=== PATIENT | female | born 2000 | race Two or more races ===

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

== ENCOUNTER 2024-09-25 23:46 | Inpatient (IN) | payer MEDICAID, OTHER ==
[~2024-09-25] VITALS: Ht 149.9 cm; Wt 71.5 kg
[2024-09-26] VITALS (8 sets, daily range): BP systolic 87–117; BP diastolic 42–87; PULSE 60–86; RESP 14–18; TEMP 97.8–98.6; O2SAT 97–98
[2024-09-26] MEDS: ONDANSETRON ODT 4 MG TAB PO ONE
[2024-09-26 00:43] LABS: Urine Bacteria FEW /hpf (None Seen); Urine Blood Negative /uL (Negative); Urine Clarity Turbid (Clear); Urine Color Yellow (Yellow); Urine Mucus FEW (None Seen); Urine Protein, UAD Negative (Negative); Urine Specific Gravity 1.027 (1.001-1.035); Urine Squamous Epithelial Cell FEW /hpf (<5); Urine Urobilinogen 2 mg/dL (Negative); Urine WBC 4 /HPF (0-5)
[2024-09-26 00:45] LABS: Basophils # (auto) 0 10 ^3/uL (0-0.2); Basophils % (auto) 0.3 % (0.0-2.0); Eosinophils # (auto) 0.1 10 ^3/uL (0-0.8); Eosinophils % (auto) 0.5 % (0.0-7.0); Hematocrit 39.6 % (36.0-46.0); Hemoglobin 13.3 g/dL (12.2-16.2); Lymphocytes # (auto) 1.1 10 ^3/uL (0.4-5.4); Lymphocytes % (auto) 8.7 % (10.0-50.0); Mean Corpuscular Hemoglobin 30.9 pg (28.0-32.0); Mean Corpuscular Hgb Conc. 33.6 g/dL (32.0-36.0); Mean Corpuscular Volume 91.9 fL (80.0-100.0); Monocytes # (auto) 0.4 10 ^3/uL (0-1.3); Monocytes % (auto) 3.4 % (0.0-12.0); Neutrophils % (auto) 87.1 % (37.0-80.0); Platelet Count (auto) 420 10^3/uL (140-450); Red Blood Cells 4.31 10^6/uL (4.0-5.20); Red Cell Distribution Width 13.8 % (11.8-14.3); White Blood Cell 12.7 10^3/uL (4.4-10.8)
[2024-09-26 00:48] LABS: Chloride 106 mmol/L (98-107); Potassium 4.1 mmol/L (3.5-5.1); Sodium 142 mmol/L (136-145)
[2024-09-26 00:49] LABS: Anion Gap 9 (5-15); Calcium 10.3 mg/dL (8.7-10.4); Carbon Dioxide 27 mmol/L (20-31)
[2024-09-26 00:54] LABS: BUN/Creatinine Ratio 18.2 (10.0-20.0); Blood Urea Nitrogen 10 mg/dL (9-23); Lipase 39 U/L (12-53)
--- NOTE | 2024-09-26 00:56 | DVH ---
INDICATION: Right upper quadrant /evaluate gallbladder TECHNIQUE: Multiple real-time sonographic images were obtained of the right upper quadrant. COMPARISON: None FINDINGS: Liver is normal in size and echogenicity measuring approximately 15.8 cm. No focal lesions identified . No evidence of intrahepatic biliary ductal dilatation. Common bile duct is dilated measuring up to 11.6 mm. Gallbladder demonstrates multiple small gallstones. Gallbladder wall thickness is within normal limit s measuring 2.8 mm. Sonographic Springer's sign was reportedly positive. Right kidney measures 11 cm and appears unremarkable. No hydronephrosis. Visualized pancreas appears grossly unremarkable. No fluid collection noted. IMPRESSION: Cholelithiasis. Possible acute cholecystitis. Dilated common bile duct measuring 11-12 mm suggestive of choledocholithiasis.
[2024-09-26] MEDS: MAALOX PLUS or MAALOX 30 ML PO ONE (00:58)
[2024-09-26 00:59] LABS: Glucose 128 mg/dL (74-106)
[2024-09-26] MEDS: LIDOCAINE VISCOUS 2% 15ML UD PO ONE (00:59)
--- NOTE | 2024-09-26 01:01 | ED.PDOC ---
GI ASSESSMENT HPI Comments 24 year old female who came to ER for abdominal pain. Patient has been having intermittent episodes of epigastric abdominal pain, cramping, nonradiating, associated bouts of nausea and vomiting. Patient has history of gallstones, concerned her gallstones my be flaring up. Vital signs were stable on arrival. Chief Complaint: Abdominal Pain Time Seen by MD: 01:01 Primary Care Provider: DR LATHAM Reviewed Notes: Nurses Notes Allergies: Coded Allergies: NO KNOWN ALLERGIES (Unverified , 11/30/12) Information Source: Patient Mode of Arrival: Ambulatory Timing: Hours Duration: Since onset Prehospital treatment: None Quality: Cramping Vomitus: Watery Stool: Normal Severity: Moderate Recent: None Recent Hx of: None Pain Location: Diffuse, Epigastric, RUQ Modifying Factors: Exertion Associated sign and symptoms: Nausea, Vomiting, Abdominal Pain Past Medical History PAST MEDICAL HISTORY: Denies Past Medical History (Other): Patient is four weeks delivery Surgical History: Denies all surgeries [employer] History: Denies all [employer] Hx Family History Family History: Reviewed,noncontributory to illness Social History Smoker: Non-Smoker Alcohol: Denies ETOH Use Drugs: Denies Drug Use Lives In: Home Constitutional: denies: chills, diaphoresis, fatigue, fever, malaise, sweats, weakness, others EENTM: denies: blurred vision, double vision, ear bleeding, ear discharge, ear drainage, ear pain, ear ringing, eye pain, eye redness, hearing loss, mouth pain, mouth swelling, nasal discharge, nose bleeding, nose congestion, nose pain, photophobia, tearing, throat pain, throat swelling, voice changes, others Respiratory: denies: cough, hemoptysis, orthopnea, SOB at rest, shortness of breath, SOB with excertion, stridor, wheezing, others Cardiovascular: denies: chest pain, dizzy spells, diaphoresis, Dyspnea on exertion, edema, irregular heart beat, left arm pain, lightheadedness, palpitations, PND, syncope, others Gastrointestinal: reports: abdominal pain, nausea, vomiting; denies: abdomen distended, blood streaked bowels, constipated, diarrhea, dysphagia, difficulty swallowing, hematemesis, melena, poor appetite, poor fluid intake, rectal bleeding, rectal pain, others Genitourinary: denies: abnormal vagina bleeding, burning, dyspareunia, dysuria, flank pain, frequency, hematuria, incontinence, pain, , vagina discharge, urgency, others Neurological: denies: dizziness, fainting, headache, left sided numbness, left sided weakness, numbness, paresthesia, pre-existing deficit, right sided numbness, right sided weakness, seizure, speech problems, tingling, tremors, weakness, others Musculoskeletal: denies: back pain, gout, joint pain, joint swelling, muscle pain, muscle stiffness, neck pain, others Integumetry: denies: bruises, change in color, change in hair/nails, dryness, laceration, lesions, lumps, rash, wounds, others Allergic/Immunocompromised: denies: Difficulty Healing, Frequent Infections, Hives, Itching, others Hematologic/Lymphatic: denies: anemia, blood clots, easy bleeding, easy bruising, swollen glands, others Endocrine: denies: excessive hunger, excessive sweating, excessive thirst, excessive urination, flushing, intolerance to cold, intolerance to heat, unexplained weight gain, unexplained weight loss, others Psychiatric: denies: anxiety, bipolar disorder, depression, hopeless, panic disorder, schizophrenia, sleepless, suicidal, others Physical Exam General Appearance: Moderate Distress ( [id number] distress due to abdominal pain concerns.), Normal HEENT: Normal ENT Inspection, Pharynx Normal, TMs Normal Neck: Full Range of Motion, Non-Tender, Normal, Normal Inspection Respiratory: Chest Non-Tender, Lungs Clear, No Accessory Muscle Use, No Respiratory Distress, Normal Breath Sounds Cardiovascular: No Edema, No JVD, No Murmur, No Gallop, Normal Peripheral Pulses, Regular Rate/Rhythm Breast Exam: Deferred Gastrointestinal: Other ( Diffuse epigastric tenderness to palpation extending towards the right upper quadrant. No pulsatile masses. Abdomen was reasonably soft. Possible Springer's.) Genitalia: Deferred Pelvic: Deferred Rectal: Deferred Extremities: No calf tenderness, Normal capillary refill, Normal inspection, Normal range of motion, Non-tender, No pedal edema Musculoskeletal : Apperance: Normal Neurologic: Alert, No Motor Deficits, Normal Affect, Normal Mood, No Sensory Deficits Cerebellar Function: Normal Reflexes: Normal Skin: Dry, Normal Color, Warm Lymphatic: No Adenopathy Was a procedure done? Was a procedure done?: No GI differential Dx Differential Diagnosis: Cholecystitis, Constipation, Diverticular disease, Gastritis/PUD, Gastroenteritis, Pancreatitis, UTI, Urolithiasis X-Ray, Labs, Meds, VS Vital Signs Date Time Temp Pulse Resp B/P (MAP) Pulse Ox O2 Delivery O2 Flow Rate FiO2 09/26/24 01:03 86 14 98 Room Air* 0 21 09/26/24 01:01 98.8 86 14 123/88 (100) 98 98.8 09/25/24 23:59 98.2 96 18 135/78 (97) 99 98.2 Lab Test 09/26/24 00:28 09/26/24 00:18 Range/Units White Blood Count 12.7 H 4.4-10.8 10^3/uL Red Blood Count 4.31 4.0-5.20 10^6/uL Hemoglobin 13.3 12.2-16.2 g/dL Hematocrit 39.6 36.0-46.0 % Mean Corpuscular Volume 91.9 80.0-100.0 fL Mean Corpuscular Hemoglobin 30.9 28.0-32.0 pg Mean Corpuscular Hemoglobin Concent 33.6 32.0-36.0 g/dL Red Cell Distribution Width 13.8 11.8-14.3 % Platelet Count 420 140-450 10^3/uL Mean Platelet Volume 8.5 6.9-10.8 fL Neutrophils (%) (Auto) 87.1 H 37.0-80.0 % Lymphocytes (%) (Auto) 8.7 L 10.0-50.0 % Monocytes (%) (Auto) 3.4 0.0-12.0 % Eosinophils (%) (Auto) 0.5 0.0-7.0 % Basophils (%) (Auto) 0.3 0.0-2.0 % Neutrophils # (Auto) 11.0 H 1.6-8.6 10 ^3/uL Lymphocytes # (Auto) 1.1 0.4-5.4 10 ^3/uL Monocytes # (Auto) 0.4 0-1.3 10 ^3/uL Eosinophils # (Auto) 0.1 0-0.8 10 ^3/uL Basophils # (Auto) 0 0-0.2 10 ^3/uL Nucleated Red Blood Cells 0.0 % Sodium Level 142 136-145 mmol/L Potassium Level 4.1 3.5-5.1 mmol/L Chloride Level 106 98-107 mmol/L Carbon Dioxide Level 27 20-31 mmol/L Anion Gap 9 5-15 Blood Urea Nitrogen 10 9-23 mg/dL Creatinine 0.55 0.550-1.02 mg/dL Glomerular Filtration Rate Calc 132 >90 mL/min BUN/Creatinine Ratio 18.2 10.0-20.0 Serum Glucose 128 H 74-106 mg/dL Calcium Level 10.3 8.7-10.4 mg/dL Lipase 39 12-53 U/L Urine Color Yellow Yellow Urine Clarity Turbid H Clear Urine pH 7.0 5.0-9.0 Urine Specific [place] 1.027 1.001-1.035 Urine Protein Negative Negative Urine Ketones Negative Negative Urine Blood Negative Negative /uL Urine Nitrite Negative Negative Urine Bilirubin Negative Negative Urine Urobilinogen 2 H Negative mg/dL Urine Leukocyte Esterase Negative Negative /uL Urine RBC 2 0 - 4 /hpf Urine Microscopic WBC 4 0-5 /HPF Urine Squamous Epithelial Cells Few <5 /hpf Urine Bacteria Few H None Seen /hpf Urine Mucus Few None Seen Urine Glucose Normal Normal mg/dL Current Medications Medications (Trade) Dose Ordered Sig/Ollie Route Start Time Stop Time Status Last Admin Al Hydrox/Mg Hydrox/Simethicone (Maalox Plus) 30 ml ONCE ONCE PO 09/26/24 00:00 09/26/24 00:01 DC 09/26/24 00:58 Lidocaine HCl (Xylocaine 2% Viscous) 3 ml ONCE ONCE PO 09/26/24 00:00 09/26/24 00:01 DC 09/26/24 00:59 X-Ray, Labs, Meds, VS Comment All studies performed the ED were evaluated by me personally. Laboratories studies were unremarkable for any acute systemic process, but ultrasound of right upper quadrant revealed dilated common bile duct measuring 11-12 mm suggestive of choledocholithiasis. Patient will be admitted for pain management and surgical evaluation. Time of 1ST Reevaluation: 01:25 Reevaluation 1ST: Improved Consultation: PCP, Surgery Patient Education/Counseling: Diagnosis, Treatment Family Education/Counseling: Diagnosis, Treatment, No Family Present Departure 1 Departure Time of Disposition: 01:26 Impression: Primary Impression: Choledocholithiasis Disposition: 09 ADMITTED INPATIENT Condition: Stable Discharged With: Self, Relative (Mother) Critical Care Note Critical Care Time?: No Stability Stability form required: No Heart Score Heart Score: Heart Score Response (Comments) Value History N/A 0 EKG N/A 0 Age N/A 0 Risk Factors N/A 0 Troponin N/A 0 Total 0 I personally scribed for TWILA ALVARADO ([email or web address]) on 09/26/24 at 01:01. Electronically submitted by Juma Miranda ([email or web address]). TWILA ALVARADO PAC Sep 26, 2024 01:01
[2024-09-26] MEDS ORDERED: MORPHINE SULFATE INJ 2 MG/ml SYRG IV PRN ×2 (03:00→05:00)
[2024-09-26] MEDS: SODIUM CHLORIDE 0.9% 1,000 ML IV SCH (03:00)
[2024-09-26] MEDS ORDERED: HYDROcodone-ACET 5/325MG TAB PO PRN (03:00)
[2024-09-26] MEDS ORDERED: ONDANSETRON HCL 4 MG/2 ML VIAL IV PRN (03:00)
[2024-09-26] MEDS ORDERED: ACETAMINOPHEN 325 MG TAB PO PRN (03:00)
[2024-09-26] MEDS ORDERED: DOCUSATE SOD 100 MG CAP PO PRN (03:00)
[2024-09-26] MEDS: cefTRIAXone 1GM/50ML D5W 50 ML IV ONE (03:52)
[2024-09-26 04:20] LABS: Basophils # (auto) 0.1 10 ^3/uL (0-0.2); Basophils % (auto) 0.5 % (0.0-2.0); Eosinophils # (auto) 0 10 ^3/uL (0-0.8); Eosinophils % (auto) 0.2 % (0.0-7.0); Hematocrit 37.2 % (36.0-46.0); Hemoglobin 13.1 g/dL (12.2-16.2); Lymphocytes # (auto) 1.1 10 ^3/uL (0.4-5.4); Lymphocytes % (auto) 10.3 % (10.0-50.0); Mean Corpuscular Hemoglobin 32.1 pg (28.0-32.0); Mean Corpuscular Hgb Conc. 35.3 g/dL (32.0-36.0); Monocytes # (auto) 0.6 10 ^3/uL (0-1.3); Monocytes % (auto) 5.5 % (0.0-12.0); Neutrophils # (auto) 9.1 10 ^3/uL (1.6-8.6); Neutrophils % (auto) 83.5 % (37.0-80.0); Platelet Count (auto) 375 10^3/uL (140-450); Red Blood Cells 4.08 10^6/uL (4.0-5.20); White Blood Cell 10.9 10^3/uL (4.4-10.8)
[2024-09-26 04:35] LABS: Albumin 4.3 g/dL (3.2-4.8); Anion Gap 9 (5-15); BUN/Creatinine Ratio 18.2 (10.0-20.0); Calcium 10.2 mg/dL (8.7-10.4); Carbon Dioxide 25 mmol/L (20-31); Chloride 107 mmol/L (98-107); Potassium 3.8 mmol/L (3.5-5.1); Sodium 141 mmol/L (136-145)
[2024-09-26 04:36] LABS: Bilirubin, Total 0.9 mg/dL (0.2-1.0)
[2024-09-26 04:42] LABS: Alanine Aminotransferase 62 U/L (7-40); Alkaline Phosphatase 156 U/L (46-116); Aspartate Aminotransferase 123 U/L (13-40); Blood Urea Nitrogen 8 mg/dL (9-23); Glucose 120 mg/dL (74-106)
--- NOTE | 2024-09-26 04:49 | DVHHP2 ---
History of Present Illness Reason for Visit: Choledocholithiasis History of Present Illness The patient is a 24-year-old female status post 4 weeks of delivery, presented to [facility] ED with complaint of acute abdominal pain. Patient reports she has been experiencing epigastric abdominal pain, cramping, nonradiating, associated bout of nausea, vomiting, getting worse that prompted this visit. Patient was seen and evaluated in the ED, laboratory data shows WBC 12.7, platelets 420, sodium 142, potassium 4.1, BUN 10, creatinine 0.55, GFR 132, glucose 128. Abdomen/pelvis CT revealing cholelithiasis; possible acute cholecystitis, dilated common bile duct measuring 11-12 mm suggestive of choledocholithiasis. Patient was started on IV antibiotic regimen Rocephin, please see medication orders section in the computer. On my assessment, patient denied chest pain, no headache, no dizziness, no shortness a breath, no nausea, no vomiting, no fever, no chills. Patient was admitted for further evaluation and medical management. Past Medical History Denies past medical history Past Surgical History Denies all surgeries Family History Reviewed, noncontributory to the management of this case. Past Social History The patient lives at home, denies smoking, alcohol or illicit drugs abuse. Review of Systems Constitutional: No: Fever, Chills, Sweats, Weakness, Malaise, Other Eyes: No: Pain, Vision change, Conjunctivae inflammation, Eyelid inflammation, Other, Redness ENT: No: Ear pain, Ear discharge, Nose pain, Nose discharge, Nose congestion, Mouth pain, Mouth swelling, Throat pain, Throat swelling, Other Respiratory: No: Cough, Dry, Shortness of breath, SOB with excertion, Wheezing, Hemoptysis, Pleuritic Pain, Sputum, Wheezing, Other Cardiovascular: No: Chest Pain, Palpitations, Orthopnea, Paroxysmal Noc. Dyspnea, Edema, Lt Headedness, Other Gastrointestinal: Nausea, Vomiting, Abdominal Pain; No: Diarrhea, Constipation, Melena, Hematochezia, Other Genitourinary: No Dysuria, No Frequency, No Incontinence, No Hematuria, No Retention, No Other Musculoskeletal: No: other, neck pain, shoulder pain, arm pain, back pain, hand pain, leg pain, foot pain Skin: No: Rash, Lesions, Jaundice, Bruising, Other Neurological: No: Weakness, Numbness, Incoordination, Change in speech, Confusion, Seizures, Other Allergies: Coded Allergies: NO KNOWN ALLERGIES (Unverified , 11/30/12) Medications Current Medications Medications Dose Ordered Sig/Ollie Route Start Time Stop Time Status Last Admin Dose Admin Ceftriaxone Sodium 50 ml @ 100 mls/hr Q24H IV 09/27/24 04:00 Sodium Chloride 1,000 ml @ 60 mls/hr [id number] IV 09/26/24 03:00 09/26/24 03:00 60 MLS/HR Acetaminophen/ Hydrocodone Bitart 1 tab Q4HP PRN PO 09/26/24 03:00 Ondansetron HCl 4 mg Q4HP PRN IV 09/26/24 03:00 Docusate Sodium 100 mg BIDPRN PRN PO 09/26/24 03:00 Acetaminophen 650 mg Q6HP PRN PO 09/26/24 03:00 Morphine Sulfate 2 mg Q4HPRN PRN IV 09/26/24 03:00 Exam Vital Signs Vital Signs Date Time Temp Pulse Resp B/P (MAP) Pulse Ox O2 Delivery O2 Flow Rate FiO2 09/26/24 04:06 77 20 114/62 (79) 97 09/26/24 02:29 98.4 98.4 09/26/24 02:28 Room Air* 0 21 General Appearance: Alert, Oriented X3, Cooperative, No acute distress HEENT: Atraumatic, PERRLA, EOMI, Mucous membr. moist/pink Respiratory: Clear to auscultation, Normal air movement Cardiovascular: Regular rate, Normal S1, Normal S2, No murmurs Abdominal: Normal bowel sounds, Soft, No hepatospenomegaly, No masses, Other (Reports tenderness) Extremities: No clubbing, No cyanosis, No edema, Normal pulses, No tenderness/swelling Skin: No rashes, No breakdown, No significant lesion Neuro: Normal gait, Normal speech, Strength at 5/5 X4 ext, Normal tone, Sensation intact, Cranial nerves 3-12 NL, Reflexes 2+ Psych/Mental Status: Mental status NL, Mood NL Labs/Xrays Labs Test 09/26/24 03:53 09/26/24 00:28 09/26/24 00:18 Range/Units White Blood Count 10.9 H 4.4-10.8 10^3/uL Red Blood Count 4.08 4.0-5.20 10^6/uL Hemoglobin 13.1 12.2-16.2 g/dL Hematocrit 37.2 36.0-46.0 % Mean Corpuscular Volume 91.0 80.0-100.0 fL Mean Corpuscular Hemoglobin 32.1 H 28.0-32.0 pg Mean Corpuscular Hemoglobin Concent 35.3 32.0-36.0 g/dL Red Cell Distribution Width 14.0 11.8-14.3 % Platelet Count 375 140-450 10^3/uL Mean Platelet Volume 8.7 6.9-10.8 fL Neutrophils (%) (Auto) 83.5 H 37.0-80.0 % Lymphocytes (%) (Auto) 10.3 10.0-50.0 % Monocytes (%) (Auto) 5.5 0.0-12.0 % Eosinophils (%) (Auto) 0.2 0.0-7.0 % Basophils (%) (Auto) 0.5 0.0-2.0 % Neutrophils # (Auto) 9.1 H 1.6-8.6 10 ^3/uL Lymphocytes # (Auto) 1.1 0.4-5.4 10 ^3/uL Monocytes # (Auto) 0.6 0-1.3 10 ^3/uL Eosinophils # (Auto) 0 0-0.8 10 ^3/uL Basophils # (Auto) 0.1 0-0.2 10 ^3/uL Nucleated Red Blood Cells 0.0 % Sodium Level 141 136-145 mmol/L Potassium Level 3.8 3.5-5.1 mmol/L Chloride Level 107 98-107 mmol/L Carbon Dioxide Level 25 20-31 mmol/L Anion Gap 9 5-15 Blood Urea Nitrogen 8 L 9-23 mg/dL Creatinine 0.44 L 0.550-1.02 mg/dL Glomerular Filtration Rate Calc 139 >90 mL/min BUN/Creatinine Ratio 18.2 10.0-20.0 Serum Glucose 120 H 74-106 mg/dL Calcium Level 10.2 8.7-10.4 mg/dL Total Bilirubin 0.9 0.2-1.0 mg/dL Aspartate Amino Transferase (AST) 123 H 13-40 U/L Alanine Aminotransferase (ALT) 62 H 7-40 U/L Alkaline Phosphatase 156 H 46-116 U/L Total Protein 7.0 5.7-8.2 g/dL Albumin 4.3 3.2-4.8 g/dL Lipase 39 12-53 U/L Urine Color Yellow Yellow Urine Clarity Turbid H Clear Urine pH 7.0 5.0-9.0 Urine Specific [place] 1.027 1.001-1.035 Urine Protein Negative Negative Urine Ketones Negative Negative Urine Blood Negative Negative /uL Urine Nitrite Negative Negative Urine Bilirubin Negative Negative Urine Urobilinogen 2 H Negative mg/dL Urine Leukocyte Esterase Negative Negative /uL Urine RBC 2 0 - 4 /hpf Urine Microscopic WBC 4 0-5 /HPF Urine Squamous Epithelial Cells Few <5 /hpf Urine Bacteria Few H None Seen /hpf Urine Mucus Few None Seen Urine Glucose Normal Normal mg/dL PATIENT: NAVIN WINKLERACCT: [id number] UNIT: [id number] : 2000 LOC: ER ROOM / BED: / AGE / SEX: 24 / F ADM STATUS: REG ER SERVICE 0007 ORDERING PHYSICIAN: TWILA ALVARADO PAC PROCEDURE(s): ABDL - ABDOMEN LIMITED REASON: Right upper quadrant /evaluate gallbladder ORDER NUMBER(s): [id number], ACCESSION NUMBER(s): [id number] INDICATION: Right upper quadrant /evaluate gallbladder TECHNIQUE: Multiple real-time sonographic images were obtained of the right upper quadrant. COMPARISON: None FINDINGS: Liver is normal in size and echogenicity measuring approximately 15.8 cm. No focal lesions identified. No evidence of intrahepatic biliary ductal dilatation. Common bile duct is dilated measuring up to 11.6 mm. Gallbladder demonstrates multiple small gallstones. Gallbladder wall thickness is within normal limits measuring 2.8 mm. Sonographic Springer's sign was reportedly positive. Right kidney measures 11 cm and appears unremarkable. No hydronephrosis. Visualized pancreas appears grossly unremarkable. No fluid collection noted. IMPRESSION: Cholelithiasis. Possible acute cholecystitis. Dilated common bile duct measuring 11-12 mm suggestive of choledocholithiasis. Assessment/Plan Assessment/Plan Choledocholithiasis Acute abdominal pain Leukocytosis, unspecified Plan 1. Admit to med surge unit 2. Breathing treatment 3. Pain control management 4. IV antibiotic management 5. Management of fluids and electrolytes 6. Consultation for surgery 7. Diagnostic test abdomen/pelvis CT 8. DVT prophylaxis-on SCDs 9. Repeat labs CBC, CMP in a.m. 10. Home medication reviewed and reconciled 11. Continue with current medical management 12. Treatment plan discussed with patient and RN. Patient verbalized understanding. Plan discussed with: Patient, Other (RN) My Orders Orders - VERNON CASILLAS DNP Procedure Category Date Status Time * Surgical Consult CONS 09/26/24 Transmitted Allergies SIMEON 09/26/24 In Process 02:55 Code Status CODE 09/26/24 Transmitted 02:55 Sodium Chloride 0.9% PHA 09/26/24 In Process 03:00 Oxygen Per Hour RT 09/26/24 Transmitted 02:55 Hydrocodone-Acet PHA 09/26/24 In Process 5/325mg Tab ([place] 03:00 Ondansetron Hcl PHA 09/26/24 In Process (Zofran) 03:00 Docusate Sodium PHA 09/26/24 In Process Capsule (Colace 03:00 Complete Blood Count LAB 09/27/24 Verified 04:00 Comprehensive LAB 09/27/24 Verified Metabolic Panel 04:00 Condition: Serious SIMEON 09/26/24 In Process 02:55 Acetaminophen Tablet PHA 09/26/24 In Process (Tylenol Tablet) 03:00 Clear Liq Diet DIET 09/26/24 Transmitted Breakfast Bedrest With Bathroom SIMEON 09/26/24 In Process Privileg 02:55 Morphine Sulfate PHA 09/26/24 In Process Injection 03:00 Sequential SIMEON 09/26/24 In Process Compression Device Ceftriaxone 1gm/50ml PHA 09/27/24 In Process D5w (Rocephin) 04:00 Blood Culture KALANI 09/26/24 In Process 03:16 Admit ADMIT 09/26/24 Verified 04:47 Nitroglycerin PHA 09/26/24 Verified Sublingual (Ntrostat 05:00 Morphine Sulfate PHA 09/26/24 Verified Injection 05:00 Notify Md Of Changes SIMEON 09/26/24 Verified From Base 04:47 Emergency Dysrhythmia SIMEON 09/26/24 Verified Protocol 04:47 Oxygen By Nasal RT 09/26/24 Verified Cannula 04:47 Problem List: (1) Choledocholithiasis (2) Acute abdominal pain (3) Leukocytosis, unspecified Date of Service: Sep 26, 2024 Billing Provider: VERNON CASILLAS DNP Common Visit Codes: [id number] INP/OBS CARE (HIGH) VERNON CASILLAS [facility] Sep 26, 2024 04:49
[2024-09-26] MEDS ORDERED: NITROGLYCERIN 0.4 MG SL TAB SL PRN (05:00)
--- NOTE | 2024-09-26 13:41 | DVHPNRES ---
Progress Note Date Seen: Sep 26, 2024 Resident Creating Document: GALINDO PRICE RESIDENT Has the PT tested + for MRSA If YES, has PT been informed?: No Medical Necessity Reason Pt with a Central, PICC or Fol: No Subjective Review of Systems Yang Gamboa is a 24-year-old female who presented to the emergency department with a 2-day history of severe epigastric abdominal pain, described as constant, sharp, and radiating to the back. The pain was associated with nausea and multiple episodes of non-bloody, non-bilious vomiting. She rated the intensity of the pain as 8/10 at its peak, which prompted her to seek emergency care. The patient reports a similar but milder pattern of pain episodes that began during her recent , which she delivered from just a few weeks ago. Those prior episodes were self-limited and did not require hospitalization. This current episode, however, is the most severe she has experienced. A CT abdomen was obtained and revealed stones in the common bile duct (choledocholithiasis). She was started on IV fluids (normal saline), IV pain control with morphine, and antibiotic therapy with ceftriaxone for possible biliary infection. She is currently clinically improving, denies ongoing abdominal pain, and is tolerating fluids. Given her imaging findings and clinical history, a Magnetic Resonance Cholangiopancreatography (MRCP) is planned to further characterize the biliary anatomy and evaluate for obstruction or cholecystitis. Due to her age, status, and the severity of symptoms, transfer to a facility with higher level of GI or surgical care is under consideration. She has no prior history of gallbladder disease but endorses a BMI of 31.8, a sedentary lifestyle, and a non-restricted diet high in fats, which could be contributing risk factors. She lives at home with family and is her . She has no history of hepatitis, alcohol use, or known liver disease. Review of Systems : Constitutional: Denies fever, chills, or weight loss GI: Positive for nausea, vomiting, and epigastric pain. Denies diarrhea, constipation, or hematemesis : Denies dysuria or hematuria Cardiovascular: Denies chest pain or palpitations Respiratory: Denies cough or dyspnea Skin: No jaundice or rash noted Neuro: No headache or dizziness Psych: Denies depression or anxiety Patient reports: No new complaints Changes from previous H/P or p: No Changes Objective vital signs Vital Sign Date Time Temp Pulse Resp B/P (MAP) Pulse Ox O2 Delivery O2 Flow Rate FiO2 09/26/24 08:30 98.6 72 16 109/74 (86) 98 98.6 09/26/24 08:00 Room Air* 0 21 Total Intake and Output 09/25/24 09/25/24 09/26/24 15:00 23:00 07:00 Intake Total 230 ml Balance 230 ml medications Current Medications Medications Dose Ordered Sig/Ollie Route Start Time Stop Time Status Last Admin Dose Admin Ceftriaxone Sodium 50 ml @ 100 mls/hr Q24H IV 09/27/24 04:00 Sodium Chloride 1,000 ml @ 60 mls/hr [id number] IV 09/26/24 03:00 09/26/24 03:00 60 MLS/HR Acetaminophen/ Hydrocodone Bitart 1 tab Q4HP PRN PO 09/26/24 03:00 Ondansetron HCl 4 mg Q4HP PRN IV 09/26/24 03:00 Docusate Sodium 100 mg BIDPRN PRN PO 09/26/24 03:00 Acetaminophen 650 mg Q6HP PRN PO 09/26/24 03:00 Morphine Sulfate 2 mg Q4HPRN PRN IV 09/26/24 03:00 Nitroglycerin 0.4 mg Q5MINP PRN SL 09/26/24 05:00 Morphine Sulfate 2 mg Q30M PRN IV 09/26/24 05:00 Examination Physical Exam: General: Alert and oriented, resting comfortably in bed, no acute distress Vitals: Stable afebrile, normotensive, HR within normal limits HEENT: Mucous membranes moist, no scleral icterus Cardiac: RRR, no murmurs, gallops, or rubs Lungs: Clear to auscultation bilaterally, no wheezes or rales Abdomen: Soft, mild epigastric tenderness to palpation, no guarding or rebound. Bowel sounds present. No palpable masses or organomegaly. Monroe sign negative at present. Skin: No jaundice or rashes Extremities: No edema Neuro: Grossly non-focal, alert and oriented 3 laboratory and microbiology Laboratory Tests 09/26/24 03:53 Test 09/26/24 03:53 Range/Units Serum Glucose 120 H 74-106 mg/dL Problem List/Assessment/Plan Problem List/Assessment/Plan #Abdominal pain likely due to cholecystitis #Questionable acute cholecystitis -admit to med surge -normal saline -ceftriaxone IV daily -MRCP -surgery consult #Acute liver injury Transaminitis -treat underlying condition #Type 1 obesity -Lifestyle modification counseling Case discussed with Dr. Dobson Goals of care discussed with the patient for 31 minutes Code status: Full code Plan discussed with: Patient, Other (mother) My Orders My Orders Orders - GALINDO PRICE Procedure Category Date Status Time Mrcp Mri MRI 09/26/24 Logged 13:24 Date of Service: Sep 26, 2024 Billing Provider: MATT DOBSON MD Common Visit Codes: [id number] INP/OBS CARE(HIGH) GALINDO PRICE RESIDENT Sep 26, 2024 13:41 MATT DOBSON MD Sep 27, 2024 10:20
--- NOTE | 2024-09-26 16:16 | DVHINCON2 ---
Date of service: Sep 26, 2024 Referring Physician Cindy Reason for Consultation Patient is a 24-year-old female with no past medical history other than section three weeks ago was admitted with abdominal pain. Findings consistent with dilated common bile duct and cholelithiasis. Patient is in route to having an MRCP today at the time of examination. She denies prior history of gallstones. She denies any nausea or vomiting right now, she denies any abdominal pain. Symptoms have resolved. She had denies prior history of similar findings or symptoms. History of Present Illness As above Past Medical History As above Family History: Diabetes mellitus G8 MOTHER G8 FATHER Hypercholesterolemia G8 MOTHER Hypertension G8 MOTHER G8 FATHER Family History No gastrointestinal diseases or malignancies Social History No tobacco, alcohol, or recreational drug use Allergies: Coded Allergies: NO KNOWN ALLERGIES (Unverified , 11/30/12) Current Medications Current Medications Medications (Trade) Dose Ordered Sig/Ollie Route PRN Reason Start Time Stop Time Status Last Admin Ceftriaxone Sodium 50 ml @ 100 mls/hr Q24H IV 09/27/24 04:00 Sodium Chloride 1,000 ml @ 60 mls/hr [id number] IV 09/26/24 03:00 09/26/24 03:00 Acetaminophen/ Hydrocodone Bitart ([place] 5/325MG Tab) 1 tab Q4HP PRN PO MODERATE PAIN (4-6 PAIN SCALE) 09/26/24 03:00 Ondansetron HCl (Zofran) 4 mg Q4HP PRN IV NAUSEA / VOMITING 09/26/24 03:00 09/26/24 14:09 DC Docusate Sodium (Colace Capsule) 100 mg BIDPRN PRN PO FOR CONSTIPATION 09/26/24 03:00 09/26/24 14:09 DC Acetaminophen (Tylenol Tablet) 650 mg Q6HP PRN PO PAIN SCALE 1-3 OR TEMP>100.4 09/26/24 03:00 Morphine Sulfate 2 mg Q4HPRN PRN IV SEVERE PAIN (7-10 PAIN SCALE) 09/26/24 03:00 09/26/24 14:09 DC Nitroglycerin (Ntrostat Sublingual) 0.4 mg Q5MINP PRN SL FOR CHEST PAIN 09/26/24 05:00 09/26/24 14:09 DC Morphine Sulfate 2 mg Q30M PRN IV FOR CHEST PAIN 09/26/24 05:00 09/26/24 14:09 DC Review of Systems 12 point review of systems negative other than HPI Vital Signs Vital Signs Date Time Temp Pulse Resp B/P (MAP) Pulse Ox O2 Delivery O2 Flow Rate FiO2 09/26/24 12:30 97.9 68 16 103/61 (75) 98 97.9 09/26/24 08:00 Room Air* 0 21 Physical Exam Alert and oriented Well-developed well-nourished female NC/AT, EOMI, PERRLA No jaundice Soft nondistended abdomen No clubbing cyanosis or edema Cranial nerves 2-12 grossly intact, moves all four extremities Labs/Diagnostic Data Labs Test 09/26/24 03:53 09/26/24 00:28 09/26/24 00:18 Range/Units White Blood Count 10.9 H 4.4-10.8 10^3/uL Red Blood Count 4.08 4.0-5.20 10^6/uL Hemoglobin 13.1 12.2-16.2 g/dL Hematocrit 37.2 36.0-46.0 % Mean Corpuscular Volume 91.0 80.0-100.0 fL Mean Corpuscular Hemoglobin 32.1 H 28.0-32.0 pg Mean Corpuscular Hemoglobin Concent 35.3 32.0-36.0 g/dL Red Cell Distribution Width 14.0 11.8-14.3 % Platelet Count 375 140-450 10^3/uL Mean Platelet Volume 8.7 6.9-10.8 fL Neutrophils (%) (Auto) 83.5 H 37.0-80.0 % Lymphocytes (%) (Auto) 10.3 10.0-50.0 % Monocytes (%) (Auto) 5.5 0.0-12.0 % Eosinophils (%) (Auto) 0.2 0.0-7.0 % Basophils (%) (Auto) 0.5 0.0-2.0 % Neutrophils # (Auto) 9.1 H 1.6-8.6 10 ^3/uL Lymphocytes # (Auto) 1.1 0.4-5.4 10 ^3/uL Monocytes # (Auto) 0.6 0-1.3 10 ^3/uL Eosinophils # (Auto) 0 0-0.8 10 ^3/uL Basophils # (Auto) 0.1 0-0.2 10 ^3/uL Nucleated Red Blood Cells 0.0 % Sodium Level 141 136-145 mmol/L Potassium Level 3.8 3.5-5.1 mmol/L Chloride Level 107 98-107 mmol/L Carbon Dioxide Level 25 20-31 mmol/L Anion Gap 9 5-15 Blood Urea Nitrogen 8 L 9-23 mg/dL Creatinine 0.44 L 0.550-1.02 mg/dL Glomerular Filtration Rate Calc 139 >90 mL/min BUN/Creatinine Ratio 18.2 10.0-20.0 Serum Glucose 120 H 74-106 mg/dL Calcium Level 10.2 8.7-10.4 mg/dL Total Bilirubin 0.9 0.2-1.0 mg/dL Aspartate Amino Transferase (AST) 123 H 13-40 U/L Alanine Aminotransferase (ALT) 62 H 7-40 U/L Alkaline Phosphatase 156 H 46-116 U/L Total Protein 7.0 5.7-8.2 g/dL Albumin 4.3 3.2-4.8 g/dL Lipase 39 12-53 U/L Urine Color Yellow Yellow Urine Clarity Turbid H Clear Urine pH 7.0 5.0-9.0 Urine Specific [place] 1.027 1.001-1.035 Urine Protein Negative Negative Urine Ketones Negative Negative Urine Blood Negative Negative /uL Urine Nitrite Negative Negative Urine Bilirubin Negative Negative Urine Urobilinogen 2 H Negative mg/dL Urine Leukocyte Esterase Negative Negative /uL Urine RBC 2 0 - 4 /hpf Urine Microscopic WBC 4 0-5 /HPF Urine Squamous Epithelial Cells Few <5 /hpf Urine Bacteria Few H None Seen /hpf Urine Mucus Few None Seen Urine Glucose Normal Normal mg/dL Assessment 1. Cholelithiasis 2. Abdominal pain 3. Possible acute cholecystitis 4. Dilated common bile duct 5. Transaminitis Problems(with codes): (1) Choledocholithiasis (2) Leukocytosis, unspecified (3) Acute abdominal pain Plan/Recommendation 1. Antibiotics 2. MRCP 3. If the patient has choledocholithiasis we will need transfer to higher level of care 4. Surgical consultation for possible acute cholecystitis 5. We will be signing off to Dr. Barkley Plan discussed with: Patient JULISSA JOHNSON MD Sep 26, 2024 16:16
--- NOTE | 2024-09-26 16:30 | DVHINCON2 ---
Date of service: Sep 26, 2024 Family History: Diabetes mellitus G8 MOTHER G8 FATHER Hypercholesterolemia G8 MOTHER Hypertension G8 MOTHER G8 FATHER Allergies: Coded Allergies: NO KNOWN ALLERGIES (Unverified , 11/30/12) Current Medications Current Medications Medications (Trade) Dose Ordered Sig/Ollie Route PRN Reason Start Time Stop Time Status Last Admin Ceftriaxone Sodium 50 ml @ 100 mls/hr Q24H IV 09/27/24 04:00 Sodium Chloride 1,000 ml @ 60 mls/hr [id number] IV 09/26/24 03:00 09/26/24 03:00 Acetaminophen/ Hydrocodone Bitart ([place] 5/325MG Tab) 1 tab Q4HP PRN PO MODERATE PAIN (4-6 PAIN SCALE) 09/26/24 03:00 Ondansetron HCl (Zofran) 4 mg Q4HP PRN IV NAUSEA / VOMITING 09/26/24 03:00 09/26/24 14:09 DC Docusate Sodium (Colace Capsule) 100 mg BIDPRN PRN PO FOR CONSTIPATION 09/26/24 03:00 09/26/24 14:09 DC Acetaminophen (Tylenol Tablet) 650 mg Q6HP PRN PO PAIN SCALE 1-3 OR TEMP>100.4 09/26/24 03:00 Morphine Sulfate 2 mg Q4HPRN PRN IV SEVERE PAIN (7-10 PAIN SCALE) 09/26/24 03:00 09/26/24 14:09 DC Nitroglycerin (Ntrostat Sublingual) 0.4 mg Q5MINP PRN SL FOR CHEST PAIN 09/26/24 05:00 09/26/24 14:09 DC Morphine Sulfate 2 mg Q30M PRN IV FOR CHEST PAIN 09/26/24 05:00 09/26/24 14:09 DC Vital Signs Vital Signs Date Time Temp Pulse Resp B/P (MAP) Pulse Ox O2 Delivery O2 Flow Rate FiO2 09/26/24 12:30 97.9 68 16 103/61 (75) 98 97.9 09/26/24 08:00 Room Air* 0 21 Labs/Diagnostic Data Labs Test 09/26/24 03:53 09/26/24 00:28 09/26/24 00:18 Range/Units White Blood Count 10.9 H 4.4-10.8 10^3/uL Red Blood Count 4.08 4.0-5.20 10^6/uL Hemoglobin 13.1 12.2-16.2 g/dL Hematocrit 37.2 36.0-46.0 % Mean Corpuscular Volume 91.0 80.0-100.0 fL Mean Corpuscular Hemoglobin 32.1 H 28.0-32.0 pg Mean Corpuscular Hemoglobin Concent 35.3 32.0-36.0 g/dL Red Cell Distribution Width 14.0 11.8-14.3 % Platelet Count 375 140-450 10^3/uL Mean Platelet Volume 8.7 6.9-10.8 fL Neutrophils (%) (Auto) 83.5 H 37.0-80.0 % Lymphocytes (%) (Auto) 10.3 10.0-50.0 % Monocytes (%) (Auto) 5.5 0.0-12.0 % Eosinophils (%) (Auto) 0.2 0.0-7.0 % Basophils (%) (Auto) 0.5 0.0-2.0 % Neutrophils # (Auto) 9.1 H 1.6-8.6 10 ^3/uL Lymphocytes # (Auto) 1.1 0.4-5.4 10 ^3/uL Monocytes # (Auto) 0.6 0-1.3 10 ^3/uL Eosinophils # (Auto) 0 0-0.8 10 ^3/uL Basophils # (Auto) 0.1 0-0.2 10 ^3/uL Nucleated Red Blood Cells 0.0 % Sodium Level 141 136-145 mmol/L Potassium Level 3.8 3.5-5.1 mmol/L Chloride Level 107 98-107 mmol/L Carbon Dioxide Level 25 20-31 mmol/L Anion Gap 9 5-15 Blood Urea Nitrogen 8 L 9-23 mg/dL Creatinine 0.44 L 0.550-1.02 mg/dL Glomerular Filtration Rate Calc 139 >90 mL/min BUN/Creatinine Ratio 18.2 10.0-20.0 Serum Glucose 120 H 74-106 mg/dL Calcium Level 10.2 8.7-10.4 mg/dL Total Bilirubin 0.9 0.2-1.0 mg/dL Aspartate Amino Transferase (AST) 123 H 13-40 U/L Alanine Aminotransferase (ALT) 62 H 7-40 U/L Alkaline Phosphatase 156 H 46-116 U/L Total Protein 7.0 5.7-8.2 g/dL Albumin 4.3 3.2-4.8 g/dL Lipase 39 12-53 U/L Urine Color Yellow Yellow Urine Clarity Turbid H Clear Urine pH 7.0 5.0-9.0 Urine Specific [place] 1.027 1.001-1.035 Urine Protein Negative Negative Urine Ketones Negative Negative Urine Blood Negative Negative /uL Urine Nitrite Negative Negative Urine Bilirubin Negative Negative Urine Urobilinogen 2 H Negative mg/dL Urine Leukocyte Esterase Negative Negative /uL Urine RBC 2 0 - 4 /hpf Urine Microscopic WBC 4 0-5 /HPF Urine Squamous Epithelial Cells Few <5 /hpf Urine Bacteria Few H None Seen /hpf Urine Mucus Few None Seen Urine Glucose Normal Normal mg/dL Assessment [id number] R/O AC CHOLECYSTITIS ELEVATED LFT MRCP TO R/O CBD STONE CONSIDER SURGERY BASED ON ONGOING EVAL Plan discussed with: Patient BHAVIN CONNER MD Sep 26, 2024 16:30
--- NOTE | 2024-09-26 16:35 | DVH ---
MRI MRCP MRI HISTORY: choledocolithiasis COMPARISON: 09/26 PROCEDURE: Multiplanar multisequence MRI images were obtained of the abdomen without intravenous cont rast Additional MIPS were obtained of the biliary system. FINDINGS: Bile ducts: -Intrahepatic ducts: Non-dilated. -Extrahepatic ducts: dilated. -Common bile duct: dilated to 10 mm -Filling defects: Yes in distal CBD. -Stricture: None. Gallbladder: Many gallstones. Pancreas: Pancreatic duct: No ductal dilatation. Lesions: None. Liver: Signal intensity: Homogenous. Contour: Smooth. Size: Normal. Lesions: 4.4 x 3.9 cm lesion in the right posterior liver. ADDITIONAL FINDINGS: Lung base: Normal. Pancreas: Normal. Spleen:Normal. Bowel: Normal. Adrenal glands:Normal. Kidneys and ureters:Normal. Lymph nodes:Normal. Peritoneum:Normal. Vessels: Normal. Abdominal wall: Normal. Bone: No aggressive bone lesions IMPRESSION: Cholelithiasis with dilated common bile duct and likely a stone in the distal CBD consistent with cho ledocholithiasis. 4.4 x 3.9 cm mass in the right posterior liver is uncertain in etiology but could be a hemangioma.
--- NOTE | 2024-09-26 17:45 | DVHINCON2 ---
DATE OF CONSULTATION: 09/26/2024 HISTORY OF PRESENT ILLNESS: This patient is 24 years old, coming in with right upper quadrant pain. She had recent done 3 weeks ago without any complications and the pain has gotten better for the past few hours. No nausea, vomiting. No constipation, diarrhea. No hematemesis, melena. No bleeding per rectum. PAST MEDICAL HISTORY: No diabetes, hypertension. PAST SURGICAL HISTORY: No significant surgical history other than a recently that was done. PHYSICAL EXAMINATION: VITAL SIGNS: Afebrile, stable signs. HEENT: With no evidence of pallor, cyanosis, or jaundice. NECK: Supple, nontender with no thyromegaly, lymphadenopathy. CHEST AND LUNGS: Clear. HEART: Within normal limits. ABDOMEN: Soft, minimally tender in the right upper quadrant with no rebound. EXTREMITIES: Unremarkable. NEUROLOGIC: She is intact. CLINICAL IMPRESSION: Liver enzymes are mildly elevated and ultrasound has been done that shows cholelithiasis, possible acute cholecystitis. PLAN: She also has dilated common bile duct and with the elevated liver enzymes, a CBD stone cannot be ruled out and that needs to be investigated and she is getting an MRCP and based upon that further need for surgery and based upon that further evaluation will be indicated if there is ____. Decision can be made if she consents to the surgery. MD JORGE LUIS Preciado/CAMILO/AYLIN TID: [id number] RECEIPT: [id number] cc: Pan Sigala NP
[2024-09-27] VITALS (8 sets, daily range): BP systolic 100–118; BP diastolic 65–84; PULSE 72–79; RESP 17–18; TEMP 97.8–98.9; O2SAT 96–99
[2024-09-27] MEDS: cefTRIAXone 1GM/50ML D5W 50 ML IV SCH (04:00)
[2024-09-27 06:41] LABS: Basophils # (auto) 0 10 ^3/uL (0-0.2); Basophils % (auto) 0.6 % (0.0-2.0); Eosinophils # (auto) 0.1 10 ^3/uL (0-0.8); Eosinophils % (auto) 1.3 % (0.0-7.0); Hematocrit 35.2 % (36.0-46.0); Hemoglobin 12.1 g/dL (12.2-16.2); Lymphocytes # (auto) 1.9 10 ^3/uL (0.4-5.4); Lymphocytes % (auto) 23.9 % (10.0-50.0); Mean Corpuscular Hemoglobin 31.4 pg (28.0-32.0); Mean Corpuscular Hgb Conc. 34.4 g/dL (32.0-36.0); Mean Corpuscular Volume 91.4 fL (80.0-100.0); Monocytes # (auto) 0.5 10 ^3/uL (0-1.3); Monocytes % (auto) 6.6 % (0.0-12.0); Neutrophils # (auto) 5.2 10 ^3/uL (1.6-8.6); Neutrophils % (auto) 67.6 % (37.0-80.0); Platelet Count (auto) 352 10^3/uL (140-450); Red Blood Cells 3.85 10^6/uL (4.0-5.20); White Blood Cell 7.8 10^3/uL (4.4-10.8)
[2024-09-27 06:51] LABS: Albumin 3.9 g/dL (3.2-4.8); Anion Gap 10 (5-15); Calcium 9.3 mg/dL (8.7-10.4); Carbon Dioxide 24 mmol/L (20-31); Glucose 78 mg/dL (74-106); Potassium 3.9 mmol/L (3.5-5.1); Sodium 142 mmol/L (136-145); Total Protein 6.4 g/dL (5.7-8.2)
[2024-09-27 06:52] LABS: Bilirubin, Total 0.8 mg/dL (0.2-1.0)
[2024-09-27 06:55] LABS: Alanine Aminotransferase 111 U/L (7-40); Alkaline Phosphatase 195 U/L (46-116); Aspartate Aminotransferase 100 U/L (13-40); BUN/Creatinine Ratio 10.9 (10.0-20.0); Blood Urea Nitrogen < 5 mg/dL (9-23); Chloride 108 mmol/L (98-107)
--- NOTE | 2024-09-27 14:03 | DVHPN2 ---
Progress Note Date Seen: Sep 27, 2024 Has the PT tested + for MRSA If YES, has PT been informed?: No Medical Necessity Reason Pt with a Central, PICC or Fol: No Objective vital signs Vital Sign Date Time Temp Pulse Resp B/P (MAP) Pulse Ox O2 Delivery O2 Flow Rate FiO2 09/27/24 13:00 98.2 78 18 100/70 (80) 96 98.2 09/27/24 08:00 Room Air* 0 21 Total Intake and Output 09/26/24 09/26/24 09/27/24 15:00 23:00 07:00 Intake Total 650 ml Balance 650 ml medications Current Medications Medications Dose Ordered Sig/Ollie Route Start Time Stop Time Status Last Admin Dose Admin Ceftriaxone Sodium 50 ml @ 100 mls/hr Q24H IV 09/27/24 04:00 09/27/24 04:00 100 MLS/HR Sodium Chloride 1,000 ml @ 60 mls/hr [id number] IV 09/26/24 03:00 09/27/24 11:55 60 MLS/HR Acetaminophen/ Hydrocodone Bitart 1 tab Q4HP PRN PO 09/26/24 03:00 Acetaminophen 650 mg Q6HP PRN PO 09/26/24 03:00 laboratory and microbiology Laboratory Tests 09/27/24 06:12 Test 09/27/24 06:12 Range/Units Serum Glucose 78 74-106 mg/dL Microbiology Date/Time Source Procedure Growth Status 09/26/24 03:53 Blood Blood Culture - Preliminary NO GROWTH AFTER 24 HOURS OF INCUBATION. Resulted Problem List/Assessment/Plan Problem List/Assessment/Plan AFEBRILE VSS ABD SOFT NON TENDER MRCP CBD STONE TRANSFER TO HIGHER LEVEL OF CARE FOR POSSIBLE ERCP INDICATED CONSIDER EMERGENT SURGERY BASED ON ONGOING EVAL Plan discussed with: Patient BHAVIN CONNER MD Sep 27, 2024 14:03
--- NOTE | 2024-09-27 18:32 | DVHDSRES ---
Discharge Summary Date of Admission Resident Creating Document: GALINDO PRICE RESIDENT Sep 26, 2024 at 04:47 Date of Discharge: Sep 27, 2024 Admitting Diagnosis acute abdominal pain Labs/Diagnostic Data: Laboratory Results Test 09/27/24 06:12 09/26/24 00:28 09/26/24 00:18 White Blood Count 7.8 10^3/uL (4.4-10.8) Red Blood Count 3.85 10^6/uL (4.0-5.20) Hemoglobin 12.1 g/dL (12.2-16.2) Hematocrit 35.2 % (36.0-46.0) Mean Corpuscular Volume 91.4 fL (80.0-100.0) Mean Corpuscular Hemoglobin 31.4 pg (28.0-32.0) Mean Corpuscular Hemoglobin Concent 34.4 g/dL (32.0-36.0) Red Cell Distribution Width 14.0 % (11.8-14.3) Platelet Count 352 10^3/uL (140-450) Mean Platelet Volume 8.8 fL (6.9-10.8) Neutrophils (%) (Auto) 67.6 % (37.0-80.0) Lymphocytes (%) (Auto) 23.9 % (10.0-50.0) Monocytes (%) (Auto) 6.6 % (0.0-12.0) Eosinophils (%) (Auto) 1.3 % (0.0-7.0) Basophils (%) (Auto) 0.6 % (0.0-2.0) Neutrophils # (Auto) 5.2 10 ^3/uL (1.6-8.6) Lymphocytes # (Auto) 1.9 10 ^3/uL (0.4-5.4) Monocytes # (Auto) 0.5 10 ^3/uL (0-1.3) Eosinophils # (Auto) 0.1 10 ^3/uL (0-0.8) Basophils # (Auto) 0 10 ^3/uL (0-0.2) Nucleated Red Blood Cells 0.0 % Sodium Level 142 mmol/L (136-145) Potassium Level 3.9 mmol/L (3.5-5.1) Chloride Level 108 mmol/L (98-107) Carbon Dioxide Level 24 mmol/L (20-31) Anion Gap 10 (5-15) Blood Urea Nitrogen < 5 mg/dL (9-23) Creatinine 0.46 mg/dL (0.550-1.02) Glomerular Filtration Rate Calc 138 mL/min (>90) BUN/Creatinine Ratio 10.9 (10.0-20.0) Serum Glucose 78 mg/dL (74-106) Calcium Level 9.3 mg/dL (8.7-10.4) Total Bilirubin 0.8 mg/dL (0.2-1.0) Aspartate Amino Transferase (AST) 100 U/L (13-40) Alanine Aminotransferase (ALT) 111 U/L (7-40) Alkaline Phosphatase 195 U/L (46-116) Total Protein 6.4 g/dL (5.7-8.2) Albumin 3.9 g/dL (3.2-4.8) Lipase 39 U/L (12-53) Urine Color Yellow (Yellow) Urine Clarity Turbid (Clear) Urine pH 7.0 (5.0-9.0) Urine Specific [place] 1.027 (1.001-1.035) Urine Protein Negative (Negative) Urine Ketones Negative (Negative) Urine Blood Negative /uL (Negative) Urine Nitrite Negative (Negative) Urine Bilirubin Negative (Negative) Urine Urobilinogen 2 mg/dL (Negative) Urine Leukocyte Esterase Negative /uL (Negative) Urine RBC 2 /hpf (0 - 4) Urine Microscopic WBC 4 /HPF (0-5) Urine Squamous Epithelial Cells Few /hpf (<5) Urine Bacteria Few /hpf (None Seen) Urine Mucus Few (None Seen) Urine Glucose Normal mg/dL (Normal) Other Laboratory Tests 09/27/24 06:12 Brief Hx & Hospital Course: HPI: Ms. Kina Winkler is a 24-year-old female who presented with a 2- day history of severe epigastric abdominal pain, described as sharp, constant, and radiating to the back, accompanied by nausea accompanied by nausea and multiple episodes of non-bloody, non-bilious vomiting. She rated the pain as 8/10 in intensity, prompting her to seek emergency care. She reported similar but milder episodes during that did not require hospitalization. Hospital course: This current episode, however, is the most severe she has experienced. CT abdomen revealed stones in the common bile duct (choledocholithiasis). She was started on IV fluids, morphine for pain control, and IV ceftriaxone for possible biliary infection. She is currently tolerating oral fluids, and her abdominal pain has improved. MRCP showed dilated common bile duct in the distal CBD consistent with choledocholithiasis Given the imaging findings the decision was made to transfer the patient to a facility with higher level of GI/surgical care for urgent ERCP (Endoscopic Retrograde Cholangiopancreatography). She has no known history of gallbladder disease, hepatitis, or alcohol use, but her BMI of 31.8, sedentary lifestyle, and diet high in fats may be contributing risk factors. Disposition: Transfer to Higher Level of Care for ERCP. Due to the findings of choledocholithiasis, the severity of symptoms, and clinical suspicion for biliary obstruction, Ms. Winkler is being transferred to a higher level of care for gastroenterology evaluation and therapeutic ERCP. Operations or Procedures [place] [address] Ph: [phone] DIAGNOSTIC IMAGING Diagnostic Imaging Report : [id number] Signed PATIENT: KINA WINKLERACCT: [id number] UNIT: [id number] : 2000 LOC: [facility] ROOM / BED: 0244ADS / 7 AGE / SEX: 24 / F ADM STATUS: ADM IN SERVICE 1324 ORDERING PHYSICIAN: GALINDO PRICE RESIDENT PROCEDURE(s): MRCP - MRCP MRI REASON: choledocolithiasis ORDER NUMBER(s): [id number], ACCESSION NUMBER(s): [id number] MRI MRCP MRI HISTORY: choledocolithiasis COMPARISON: 09/26 PROCEDURE: Multiplanar multisequence MRI images were obtained of the abdomen without intravenous contrast Additional MIPS were obtained of the biliary system. FINDINGS: Bile ducts: -Intrahepatic ducts: Non-dilated. -Extrahepatic ducts: dilated. -Common bile duct: dilated to 10 mm -Filling defects: Yes in distal CBD. -Stricture: None. Gallbladder: Many gallstones. Pancreas: Pancreatic duct: No ductal dilatation. Lesions: None. Liver: Signal intensity: Homogenous. Contour: Smooth. Size: Normal. Lesions: 4.4 x 3.9 cm lesion in the right posterior liver. ADDITIONAL FINDINGS: Lung base: Normal. Pancreas: Normal. Spleen:Normal. Bowel: Normal. Adrenal glands:Normal. Kidneys and ureters:Normal. Lymph nodes:Normal. Peritoneum:Normal. Vessels: Normal. Abdominal wall: Normal. Bone: No aggressive bone lesions IMPRESSION: Cholelithiasis with dilated common bile duct and likely a stone in the distal CBD consistent with choledocholithiasis. 4.4 x 3.9 cm mass in the right posterior liver is uncertain in etiology but could be a hemangioma. ATED BY: DERIK CASTORENA MD DICTATED DATE/TIME: 09/26/241631 SIGNED BY: DERIK CASTORENA MD SIGNED DATE/TIME: 09/26/241631 CC: [place] [address] Ph: [phone] DIAGNOSTIC IMAGING Diagnostic Imaging Report : [id number] Signed PATIENT: KINA WINKLERACCT: [id number] UNIT: [id number] : 2000 LOC: ER ROOM / BED: / AGE / SEX: 24 / F ADM STATUS: REG ER SERVICE 0007 ORDERING PHYSICIAN: TWILA ALVARADO PAC PROCEDURE(s): ABDL - ABDOMEN LIMITED REASON: Right upper quadrant /evaluate gallbladder ORDER NUMBER(s): [id number], ACCESSION NUMBER(s): [id number] INDICATION: Right upper quadrant /evaluate gallbladder TECHNIQUE: Multiple real-time sonographic images were obtained of the right upper quadrant. COMPARISON: None FINDINGS: Liver is normal in size and echogenicity measuring approximately 15.8 cm. No focal lesions identified. No evidence of intrahepatic biliary ductal dilatation. Common bile duct is dilated measuring up to 11.6 mm. Gallbladder demonstrates multiple small gallstones. Gallbladder wall thickness is within normal limits measuring 2.8 mm. Sonographic Springer's sign was reportedly positive. Right kidney measures 11 cm and appears unremarkable. No hydronephrosis. Visualized pancreas appears grossly unremarkable. No fluid collection noted. IMPRESSION: Cholelithiasis. Possible acute cholecystitis. Dilated common bile duct measuring 11-12 mm suggestive of choledocholithiasis. ATED BY: JOHN TARIQ MD DICTATED DATE/TIME: 09/26/2453 SIGNED BY: JOHN TARIQ MD SIGNED DATE/TIME: 09/26/2453 CC: Condition at Discharge: Higher Level of Care Final Diagnosis/Problems List #Abdominal pain likely due to choledocolithiasis #cholelithiasis #Hepatic mass likely hemangioma #Acute liver injury #Transaminitis #Type 1 obesity Discharge Disposition: Acute Care Facility SNF Discharge Will this Physician continue t: No Discharge Statement: "Patient was advised to return to the ER or call 911 if any headaches, dizziness, shortness of breath, chest pain, abdominal pain, bleeding, fevers, or worsening of medical condition. Patient was counseled about treatment plan, medications, possible side effects, patientverbalized understanding. All questions were answered to the best of my ability. This discharge took greater then 30 minutes in planning, reviewing documentation, counseling the patient, and discussing with other team members." ASSESSMENT ASSESSMENT Assessment Date of Service: Sep 27, 2024 Billing Provider: MATT GORDON MD Common Visit Codes: 31633-BGN/OBS DISCH DAY >30min GALINDO PRICE RESIDENT Sep 27, 2024 18:32 MATT GORDON MD Sep 28, 2024 14:46
--- NOTE | 2024-09-27 21:45 | DVHPN2 ---
Progress Note - Dictate Date Seen: Sep 27, 2024 Has the PT tested + for MRSA If YES, has PT been informed?: No Medical Necessity Reason Pt with a Central, PICC or Fol: No Subjective No new complaints vital signs Vital Sign Date Time Temp Pulse Resp B/P (MAP) Pulse Ox O2 Delivery O2 Flow Rate FiO2 09/27/24 20:14 98.9 79 18 98 09/27/24 20:00 Room Air* 0 21 09/27/24 17:00 116/84 (95) Total Intake and Output 09/26/24 09/26/24 09/27/24 15:00 23:00 07:00 Intake Total 650 ml Balance 650 ml medications Current Medications Medications Dose Ordered Sig/Ollie Route Start Time Stop Time Status Last Admin Dose Admin Ceftriaxone Sodium 50 ml @ 100 mls/hr Q24H IV 09/27/24 04:00 09/27/24 04:00 100 MLS/HR Sodium Chloride 1,000 ml @ 60 mls/hr [id number] IV 09/26/24 03:00 09/27/24 11:55 60 MLS/HR Acetaminophen/ Hydrocodone Bitart 1 tab Q4HP PRN PO 09/26/24 03:00 Acetaminophen 650 mg Q6HP PRN PO 09/26/24 03:00 objective VITAL SIGNS: Afebrile, stable signs. HEENT: With no evidence of pallor, cyanosis, or jaundice. NECK: Supple, nontender with no thyromegaly, lymphadenopathy. CHEST AND LUNGS: Clear. HEART: Within normal limits. ABDOMEN: Soft, minimally tender in the right upper quadrant with no rebound. EXTREMITIES: Unremarkable. NEUROLOGIC: She is intact. laboratory and microbiology Laboratory Tests 09/27/24 06:12 Test 09/27/24 06:12 Range/Units Serum Glucose 78 74-106 mg/dL MRCP IMPRESSION: Cholelithiasis with dilated common bile duct and likely a stone in the distal CBD consistent with choledocholithiasis. 4.4 x 3.9 cm mass in the right posterior liver is uncertain in etiology but could be a hemangioma. Problems(with codes): (1) Leukocytosis, unspecified (2) Acute abdominal pain (3) Choledocholithiasis (4) Abnormal finding on GI tract imaging (5) Elevated liver enzymes Prognosis Plan Continue supportive care IV fluid hydration IV antibiotics Outpatient follow up with GI clinic as needed Patient is being transferred to higher level of care to get ERCP with stone extraction She can subsequently have an elective cholecystectomy Monitor labs, check hepatitis panel, check lupus panel Plan discussed with: Other (Dr Dobson) LINH CONNER MD Sep 27, 2024 21:45
== END 2024-09-28 00:25 | disposition short-term general hospital (02) | DRG 561 ==
LOC: ER 23:46 → OVERFLOW 09-26 04:47 → EAST 09-26 06:50
PROVIDERS: ADMIT Student in an Organized Health Care Education/Training Program; ATTEND Emergency Medicine
DX: O99.63 Diseases of the digestive system complicating the puerperium (principal); K80.62 Calculus of gallbladder and bile duct with acute cholecystitis without obstruction; R16.0 Hepatomegaly, not elsewhere classified; O99.13 Other diseases of the blood and blood-forming organs and certain disorders involving the immune mechanism complicating the puerperium; D72.829 Elevated white blood cell count, unspecified; O99.215 Obesity complicating the puerperium; O26.63 Liver and biliary tract disorders in the puerperium; R74.01 Elevation of levels of liver transaminase levels; D18.09 Hemangioma of other sites; Z83.3 Family history of diabetes mellitus; Z82.49 Family history of ischemic heart disease and other diseases of the circulatory system; Z83.49 Family history of other endocrine, nutritional and metabolic diseases
CPT/HCPCS: 36415; 74181; 76705; 80048; 80053; 81001; 83690; 85025; 87040; 96365; G0378